=== PATIENT | male | born 1960 | race Caucasian/White ===

== ENCOUNTER 2021-05-07 18:06 | Inpatient (IN) | payer BC ==
[2021-05-07 18:48] VITALS: BMI 23.3
[2021-05-07] MEDS ORDERED: MENTHOL/PHENOL 1 EACH UD MM PRN (20:35)
[2021-05-07] MEDS ORDERED: IBUPROFEN 400 MG TABLET (FP) PO PRN (20:35)
[2021-05-07] MEDS ORDERED: ACETAMINOPHEN 325 MG TABLET (FP) PO PRN (20:35)
[2021-05-07] MEDS ORDERED: MAGNESIUM CITRATE 300 ML BOTTLE PO PRN (20:35)
[2021-05-07] MEDS ORDERED: ONDANSETRON *ODT* 4 MG TABLET SL PRN (20:35)
[2021-05-07] MEDS ORDERED: MAGNESIUM HYDROX 2400MG/30ML ORAL SUSPENSION 30 ML CUP PO PRN (20:35)
[2021-05-07] MEDS ORDERED: BISMUTH SUBSALICYLATE 524 MG/30 ML PO PRN (20:35)
[2021-05-07] MEDS ORDERED: MAG HYDROX/AL HYDROX/SIMETH 30 ML UNIT-DOSE CUP PO PRN (20:35)
[2021-05-07] MEDS: METHOCARBAMOL 500 MG TABLET PO PRN (21:52)
[2021-05-07] MEDS: THIAMINE HCL 100 MG TABLET (FP) PO SCH (21:53)
[2021-05-07] MEDS: hydrOXYzine PAMOATE 25 MG CAPSULE (FP) PO SCH (21:53)
[2021-05-07] MEDS: MELATONIN 5 MG TABLETS PO SCH (21:53)
[2021-05-07] MEDS: PRENATAL VITAMINS W/ FOLIC ACID TABLET (FP) PO SCH (21:53)
[2021-05-08] MEDS: hydrOXYzine PAMOATE 25 MG CAPSULE (FP) PO SCH ×5 (05:52→22:25)
[2021-05-08] MEDS: ACETAMINOPHEN 325 MG TABLET (FP) PO PRN (09:15)
[2021-05-08] MEDS ORDERED: diazePAM 5 MG TABLET PO PRN (09:21)
[2021-05-08 10:10] LABS: HEMATOCRIT 42.5 % (35.4-49); HEMOGLOBIN 13.9 GM/dL (11.7-16.9); MCH 31.3 pg (25.7-33.7); MCHC 32.7 g/dl (32.0-35.9); MEAN CELL VOLUME 95.5 fl (80-96); MEAN PLT VOLUME 9.5 fl (7.5-11.1); PLATELET COUNT 99 10^3/uL (134-434); RBC 4.45 M/mm3 (4.00-5.60); RDW 15.1 % (11.9-15.9); WHITE BLOOD COUNT 5.7 K/mm3 (4.0-10.0)
[2021-05-08 10:13] LABS: ALBUMIN 3.8 g/dl (3.4-5.0)
[2021-05-08 10:15] LABS: CALCIUM 9.6 mg/dL (8.5-10.1)
[2021-05-08 10:18] LABS: CREATININE 0.9 mg/dL (0.55-1.3)
[2021-05-08 10:21] LABS: BILIRUBIN,TOTAL 1.8 mg/dL (0.2-1); TOT PROT 6.8 g/dl (6.4-8.2)
[2021-05-08] MEDS: PRENATAL VITAMINS W/ FOLIC ACID TABLET (FP) PO SCH (10:26)
[2021-05-08] MEDS: diazePAM 5 MG TABLET PO SCH ×3 (10:27→22:24)
[2021-05-08] MEDS: MELATONIN 5 MG TABLETS PO SCH (22:23)
[2021-05-08] MEDS: THIAMINE HCL 100 MG TABLET (FP) PO SCH (22:25)
[2021-05-09] MEDS: hydrOXYzine PAMOATE 25 MG CAPSULE (FP) PO SCH ×5 (06:09→22:24)
[2021-05-09] MEDS: diazePAM 5 MG TABLET PO SCH ×4 (06:10→22:24)
[2021-05-09] MEDS: PRENATAL VITAMINS W/ FOLIC ACID TABLET (FP) PO SCH (10:42)
[2021-05-09] MEDS: ACETAMINOPHEN 325 MG TABLET (FP) PO PRN (10:43)
[2021-05-09] MEDS: THIAMINE HCL 100 MG TABLET (FP) PO SCH (22:24)
[2021-05-09] MEDS: MELATONIN 5 MG TABLETS PO SCH (22:25)
[2021-05-10] MEDS: diazePAM 5 MG TABLET PO SCH ×3 (06:08→22:24)
[2021-05-10] MEDS: hydrOXYzine PAMOATE 25 MG CAPSULE (FP) PO SCH ×5 (06:09→22:23)
[2021-05-10] MEDS: PRENATAL VITAMINS W/ FOLIC ACID TABLET (FP) PO SCH (10:11)
[2021-05-10] MEDS: THIAMINE HCL 100 MG TABLET (FP) PO SCH (22:23)
[2021-05-10] MEDS: MELATONIN 5 MG TABLETS PO SCH (22:24)
[2021-05-11] MEDS: diazePAM 5 MG TABLET PO SCH ×2 (05:41→17:44)
[2021-05-11] MEDS: hydrOXYzine PAMOATE 25 MG CAPSULE (FP) PO SCH ×5 (05:41→22:31)
[2021-05-11] MEDS: PRENATAL VITAMINS W/ FOLIC ACID TABLET (FP) PO SCH (10:29)
[2021-05-11] MEDS: METHOCARBAMOL 500 MG TABLET PO PRN (10:29)
[2021-05-11] MEDS: ACETAMINOPHEN 325 MG TABLET (FP) PO PRN ×2 (10:30→22:35)
[2021-05-11] MEDS: MELATONIN 5 MG TABLETS PO SCH (22:31)
[2021-05-11] MEDS: THIAMINE HCL 100 MG TABLET (FP) PO SCH (22:31)
[2021-05-12] MEDS: hydrOXYzine PAMOATE 25 MG CAPSULE (FP) PO SCH ×2 (05:32→10:28)
[2021-05-12] MEDS ORDERED: diazePAM 5 MG TABLET PO ONE (06:00)
[2021-05-12 09:38] VITALS: BP 121/89; PULSE 88; TEMP 97.7
[2021-05-12] MEDS: PRENATAL VITAMINS W/ FOLIC ACID TABLET (FP) PO SCH (10:27)
== END 2021-05-12 11:20 | disposition home or self-care (01) | DRG 775 ==
LOC: YASAS 18:06 → Y6N 20:51
PROVIDERS: ADMIT Allergy & Immunology; ATTEND Allergy & Immunology
PROC: HZ2ZZZZ Detoxification Services for Substance Abuse Treatment (ICD-10-PCS; principal; 2021-05-07)
DX: F10.230 Alcohol dependence with withdrawal, uncomplicated (principal); K40.90 Unilateral inguinal hernia, without obstruction or gangrene, not specified as recurrent; M54.5 Low back pain
CPT/HCPCS: 36415; 80053; 85027; 86780; C9803; U0003; U0005